=== PATIENT | female | born 1985 | race American Indian/Alaskan Native ===

== ENCOUNTER 2020-07-27 21:26 | Emergency (ER) | payer OTHER ==
[2020-07-27 21:54] VITALS: BP 108/74
--- NOTE | 2020-07-27 23:28 | Ultrasound Report ---
ULTRASOUND ABDOMEN, LIMITED (RIGHT UPPER QUADRANT) INDICATION: RUQ ABD pain. COMPARISON: None available. FINDINGS: Pancreas: Visualized portion shows no significant abnormality. Liver: Normal. Gallbladder: Small echogenic foci are noted characteristic of tiny stones Bile ducts: Normal. Common Bile Duct measures 4 mm. Free fluid: None. Additional Findings: None. IMPRESSION: 1. Tiny gallstones are noted in the gallbladder. There is no biliary dilatation. Signer Name: Kenrick Pugh MD Signed: 07/27/2020 11:23 PM Workstation Name: [id number]
[2020-07-28 01:04] LABS: Basophils % (Auto) 0.2 % (0.0-1.8); Eosinophils % (Auto) 0.6 % (0.0-4.3); Hematocrit 39.7 % (30.3-42.9); Hemoglobin 13.8 gm/dl (10.1-14.3); Lymphocytes # (Auto) 1.3 K/mm3 (1.2-5.4); Lymphocytes % (Auto) 15.3 % (13.4-35.0); Mean Corpuscular HGB Conc 35 % (30-34); Mean Corpuscular Volume 95 fl (79-97); Monocytes # (Auto) 0.8 K/mm3 (0.0-0.8); Monocytes % (Auto) 9.8 % (0.0-7.3); Platelet Count 243 K/mm3 (140-440); Red Blood Count 4.19 M/mm3 (3.65-5.03); Red Cell Distribution Width 13.5 % (13.2-15.2)
--- NOTE | 2020-07-28 02:08 | Emergency Department Report ---
ED Abdominal Pain HPI - General Chief Complaint: Abdominal Pain Stated Complaint: RIGHT RIB PAIN Time Seen by Provider: 07/28/20 00:01 Source: patient Mode of arrival: Ambulatory Limitations: No Limitations - History of Present Illness Initial Comments: Patient is a 35-year-old white female who is G3, she is currently 3 months presents for right upper quadrant plan for 3 days. Patient denies history of renal oral gallstones, patient denies fevers or chills does endorse 6/10 right upper quadrant pain that is intermittent. Pain exacerbated by p.o. intake. Pain is relieved by nothing tried. Patient is tolerating p.o. liquids at this time, she denies constipation or diarrhea. No fever or chills MD Complaint: abdominal pain Onset/Timin -: days(s) Location: RUQ Radiation: RUQ Migration to: RUQ Severity: moderate Severity scale (0 -10): 4 Quality: aching Consistency: intermittent Improves With: nothing Worsens With: eating Associated Symptoms: nausea. denies: denies other symptoms, vomiting, diarrhea, fever, chills, dysuria, melena - Related Data LMP (females 10-50): 3 months Previous Rx's Medication Instructions Recorded Last Taken Type Mag Hydrox/Aluminum Hyd/Simeth 30 ml PO AC PRN #1 bottle 07/28/20 Unknown Rx [Maalox Advanced Suspension] cephALEXin [Keflex] 500 mg PO Q12HR 7 Days #14 cap 07/28/20 Unknown Rx Allergies Allergy/AdvReac Type Severity Reaction Status Date / Time No Known Allergies Allergy Unverified 07/27/20 21:58 ED Review of Systems ROS: Stated complaint: RIGHT RIB PAIN Other details as noted in HPI Constitutional: denies: chills, fever Eyes: denies: eye pain, eye discharge, vision change ENT: denies: ear pain, throat pain Respiratory: denies: cough, shortness of breath, wheezing Cardiovascular: denies: chest pain, palpitations Endocrine: excessive sweating Gastrointestinal: abdominal pain, nausea. denies: vomiting, diarrhea Genitourinary: denies: urgency, dysuria, discharge Musculoskeletal: arthralgia. denies: back pain, joint swelling Skin: denies: rash, lesions Neurological: denies: headache, weakness, paresthesias Psychiatric: denies: anxiety, depression Hematological/Lymphatic: denies: easy bleeding, easy bruising ED Past Medical Hx - Past Medical History Hx Hypertension: Yes (Dx 2017) Hx Diabetes: Yes Hx Asthma: Yes - Surgical History Past Surgical History?: No - Social History Smoking Status: Never Smoker Substance Use Type: None - Medications Home Medications: Home Medications Medication Instructions Recorded Confirmed Last Taken Type Mag Hydrox/Aluminum Hyd/Simeth 30 ml PO AC PRN #1 bottle 07/28/20 Unknown Rx [Maalox Advanced Suspension] cephALEXin [Keflex] 500 mg PO Q12HR 7 Days #14 cap 07/28/20 Unknown Rx ED Physical Exam - General Limitations: No Limitations General appearance: alert, in no apparent distress - Head Head exam: Present: atraumatic, normocephalic - Eye Eye exam: Present: normal appearance, EOMI Pupils: Present: normal accommodation - ENT ENT exam: Present: mucous membranes moist - Neck Neck exam: Present: normal inspection, full ROM. Absent: tenderness - Respiratory Respiratory exam: Present: normal lung sounds bilaterally. Absent: respiratory distress, wheezes, stridor, chest wall tenderness - Cardiovascular Cardiovascular Exam: Present: regular rate, normal rhythm, normal heart sounds. Absent: systolic murmur, diastolic murmur, rubs, gallop - GI/Abdominal GI/Abdominal exam: Present: soft, tenderness (RUQ ), normal bowel sounds. Absent: distended, guarding, rebound, rigid, bruit, hernia - Rectal Rectal exam: Present: deferred - Extremities Exam Extremities exam: Present: normal inspection, full ROM. Absent: tenderness, pedal edema - Back Exam Back exam: Present: normal inspection, full ROM. Absent: tenderness, CVA t enderness (R), CVA tenderness (L), vertebral tenderness - Neurological Exam Neurological exam: Present: alert, oriented X3, CN II-XII intact, normal gait - Psychiatric Psychiatric exam: Present: normal affect, normal mood - Skin Skin exam: Present: warm, dry, intact, normal color. Absent: rash ED Course Vital Signs 07/27/20 21:35 Temperature 98.5 F Pulse Rate 117 H Respiratory 18 Rate Blood Pressure 108/74 [Right] O2 Sat by Pulse 98 Oximetry ED Medical Decision Making - Lab Data Result diagrams: 07/28/20 00:45 Labs 07/27/20 07/28/20 07/28/20 22:40 00:45 00:45 WBC 8.4 RBC 4.19 Hgb 13.8 Hct 39.7 MCV 95 MCH 33 H MCHC 35 H RDW 13.5 Plt Count 243 Lymph % (Auto) 15.3 [place] % (Auto) 9.8 H Eos % (Auto) 0.6 Baso % (Auto) 0.2 Lymph # (Auto) 1.3 [place] # (Auto) 0.8 Eos # (Auto) 0.0 Baso # (Auto) 0.0 Seg Neutrophils % 74.1 H Seg Neutrophils # 6.2 HCG, Qual Positive HCG, Quant [id number] H - Radiology Data Radiology results: report reviewed, image reviewed Findings Reporting MD: Ruben Zheng Dictation Time: July 27, 2020 16:57 Side Stitching Machine Operator: Not available Jockey Agent Date: CHEST 2 VIEWS INDICATION / CLINICAL INFORMATION: Chest Pain. COMPARISON: 07/27/2019 FINDINGS: SUPPORT DEVICES: None. HEART / MEDIASTINUM: No significant abnormality. LUNGS / PLEURA: No significant pulmonary or pleural abnormality. No pneumothorax. ADDITIONAL FINDINGS: No significant additional findings. IMPRESSION: No significant abnormality or interval change from 08/04/2015 Signer Name: Ruben Zheng MD FACR Signed: 07/27/2020 4:57 PM Workstation Name: [id number] Findings Reporting MD: Kenrick Pugh Dictation Time: July 28, 2020 01:44 Side Stitching Machine Operator: Not available Jockey Agent Date: ULTRASOUND OBSTETRIC Indication: Suprpubic pain 3 months Findings: There is a single, living intrauterine . [place]-rump length = 5.5 cm = 12 weeks, 1 day(s). heart rate is 165 beats per minute. The ovaries are normal. There is no free fluid. There is a 4 cm heterogeneous structure in the anterior uterine wall likely representing a fibroid. The placenta is low-lying. This will need to be followed as the progresses Impression: Single, living intrauterine with estimated sonographic age of 12 weeks, 1 day(s). There is a 4 cm heterogeneous structure in the anter ior abdominal wall likely representing a fibroid. The placenta is low lying. This will need to be followed as the progresses. Signer Name: Kenrick Pugh MD Signed: 07/28/2020 1:44 AM Workstation Name: [id number] - Medical Decision Making US OB: Impression: Single, living intrauterine with estimated sonographic age of 12 weeks, 1 day(s). There is a 4 cm heterogeneous structure in the anterior abdominal wall likely representing a fibroid. US: RUQ: tiny Gall stones, labs normal , h/h, HC, Ua: scant bacteria, symptoms are i mproved with medications given in ed: plan : dc to home with rx for keflex, maalox for reflux, follow up with OBGYN in 2-3 days , pt verbalized agreement and understanding of discharge plan. Critical care attestation.: If time is entered above; I have spent that time in minutes in the direct care of this critically ill patient, excluding procedure time. ED Disposition Clinical Impression: Gall stones, Abdominal pain during in first trimester Qualifiers: Weeks of gestation: 12 weeks Qualified Code(s): Z3A.12 - 12 weeks gestation of Disposition: DC-01 TO HOME OR SELFCARE Is pt being admited?: No Does the pt Need Aspirin: No Condition: Stable Instructions: Cholelithiasis (ED), Abdominal Pain in (ED), Dysuria (ED) Prescriptions: cephALEXin [Keflex] 500 mg PO Q12HR 7 Days #14 cap Mag Hydrox/Aluminum Hyd/Simeth [Maalox Advanced Suspension] 30 ml PO AC PRN #1 bottle PRN Reason: reflux Referrals: PARK HAMILTON MD [Staff Physician] - 3-5 Days [facility] [Provider Group] - 3-5 Days Forms: Work/School Release Form(ED) Time of Disposition: 03:58
--- NOTE | 2020-07-28 02:48 | Ultrasound Report ---
ULTRASOUND OBSTETRIC Indication: Suprpubic pain 3 months Findings: There is a single, living intrauterine . [place]-rump length = 5.5 cm = 12 weeks, 1 day(s). heart rate is 165 beats per minute. The ovaries are normal. There is no free fluid. There is a 4 cm heterogeneous structure in the anteri or uterine wall likely representing a fibroid. The placenta is low-lying. This will need to be followed as the progresses Impression: Single, living intrauterine with estimated sonographic age of 12 weeks, 1 day(s). There is a 4 cm heterogeneous structure in the anterior abdominal wall likely representing a fibroid. The placenta is low lying. This will need to be followed as the progresses. Signer Name: Kenrick Pugh MD Signed: 07/28/2020 2:44 AM Workstation Name: [id number]
[2020-07-28 02:51] LABS: Bacteria,Urine 4+ /HPF (Negative); Bilirubin,Urine NEG (Negative); Blood,Urine NEG (Negative); Color,Urine Straw (Yellow); Mucus,Urine FEW /HPF; Protein,Urine <15 mg/dL mg/dL (Negative); Urobilinogen,Urine < 2.0 mg/dL (<2.0)
== END 2020-07-28 04:10 | disposition home or self-care (01) ==
LOC: ED 21:26
DX: O99.611 Diseases of the digestive system complicating pregnancy, first trimester (principal); K80.20 Calculus of gallbladder without cholecystitis without obstruction; O24.811 Other pre-existing diabetes mellitus in pregnancy, first trimester; O16.1 Unspecified maternal hypertension, first trimester; O99.511 Diseases of the respiratory system complicating pregnancy, first trimester; J45.909 Unspecified asthma, uncomplicated; Z3A.12 12 weeks gestation of pregnancy
CPT/HCPCS: 36415; 76705; 76801; 81001; 84702; 84703; 85025